=== PATIENT | male | born 1950 | race Native Hawaiian/Other Pacific Islander ===

== ENCOUNTER 2017-10-23 10:48 | Day surgery (SDC) | payer MEDICARE, MEDICAID ==
[~2017-10-23] VITALS: Ht 167.6 cm; Wt 76.7 kg
[2017-10-23] MEDS ORDERED: normal saline 1000ml 1,000 ML IV PRN (11:15)
[2017-10-23] MEDS ORDERED: CALC-336 (11:31)
[2017-10-23] MEDS ORDERED: HYDR100T27 PO (11:31)
[2017-10-23] MEDS ORDERED: CALC667T5 PO (11:31)
[2017-10-23] MEDS ORDERED: NIFE90TA44 PO (11:31)
[2017-10-23] MEDS ORDERED: SENN-166 PO (11:31)
[2017-10-23] MEDS ORDERED: METO-467 PO (11:31)
[2017-10-23 11:56] LABS: BASOPHILS % (AUTO) 0.2 % (0-1); EOSINOPHILS # (AUTO) 0.2 X10'3 (0-0.9); EOSINOPHILS % (AUTO) 3.9 % (0-6); LYMPHOCYTES # (AUTO) 0.5 X10'3 (1.1-4.8); LYMPHOCYTES % (AUTO) 11.1 % (21-51); MEAN CORPUSCULAR HEMOGLOBIN 32.1 PG (27.0-31.0); MEAN CORPUSCULAR HGB CONC 33.4 % (33.0-36.5); MEAN CORPUSCULAR VOLUME 96.3 FL (78-98); MONOCYTES # (AUTO) 0.4 X10'3 (0-0.9); MONOCYTES % (AUTO) 7.9 % (2-12); NEUTROPHILS # (AUTO) 3.6 X10'3 (1.8-7.7); NEUTROPHILS % (AUTO) 76.9 % (42-75); PLATELET COUNT 153 X10'3 (140-440); RED BLOOD COUNT 3.74 X10'6 (4.70-6.10); RED CELL DISTRIBUTION WIDTH 16.7 % (11.5-14.5); WHITE BLOOD COUNT 4.7 X10'3 (4.5-11.0)
[2017-10-23 11:57] VITALS: BP 151/84
[2017-10-23 12:04] LABS: ALBUMIN 4.8 G/DL (3.4-5.0); ANION GAP 12 (8-16); BLOOD UREA NITROGEN 21 MG/DL (7-18); BUN/CREATININE RATIO 3.7 (5.4-32.0); CALCIUM 8.9 MG/DL (8.5-10.1); CHLORIDE 98 MMOL/L (99-107); CREATININE 5.64 MG/DL (0.60-1.10); GLUCOSE 94 MG/DL (70-104); SODIUM 136 MMOL/L (135-145); TOTAL CARBON DIOXIDE 26.3 MMOL/L (24-32); eGFR 10 ML/MIN
[2017-10-23] MEDS ORDERED: iohexol 300mg/ml 100ml inj. ONE (12:58)
[2017-10-23] MEDS ORDERED: LIDOcaine 1%/PF 5ML 10 MG/ML VIAL ONE (12:58)
[2017-10-23] MEDS ORDERED: fentaNYL/PF 50MCG/1 ML 2ML syringe ONE (13:11)
[2017-10-23] MEDS ORDERED: midazolam 2 mg/2 ml injection ONE (13:11)
[2017-10-23] MEDS ORDERED: heparin 1,000 UNITS/NS 500ml 500 ML ONE (13:12)
[2017-10-23] MEDS ORDERED: hydrALAZINE 20mg/ml inj. IV ONE ×2 (13:57→14:00)
[2017-10-23] MEDS ORDERED: midazolam 2 mg/2 ml injection IV PRN (14:05)
[2017-10-23] MEDS ORDERED: LIDOcaine 1%/PF 5ML 10 MG/ML VIAL SQ ONE (14:05)
[2017-10-23] MEDS ORDERED: fentaNYL/PF 50MCG/1 ML 2ML syringe IV PRN (14:05)
[2017-10-23 14:22] VITALS: BP 164/89
[2017-10-23 14:34] VITALS: BP 170/80
[2017-10-23 14:49] VITALS: BP 175/78
[2017-10-23 15:05] VITALS: BP 177/81
[2017-10-23 15:30] VITALS: BP 182/81
== END 2017-10-23 15:50 | disposition home or self-care (01) ==
LOC: SSTAY O 10:48
PROVIDERS: ATTEND Radiology Diagnostic Radiology
DX: T82.858A Stenosis of other vascular prosthetic devices, implants and grafts, initial encounter (principal); Y83.2 Surgical operation with anastomosis, bypass or graft as the cause of abnormal reaction of the patient, or of later complication, without mention of misadventure at the time of the procedure; I10 Essential (primary) hypertension; Z79.899 Other long term (current) drug therapy; Z87.01 Personal history of pneumonia (recurrent); Z83.3 Family history of diabetes mellitus
CPT/HCPCS: 36415; 36902; 80048; 85025; 99152; 99153; C1725; C1769; C1894; J0360; J1644; J2001; J2250; J3010; J7030; Q9967; A4620